=== PATIENT | male | born 1970 | race Caucasian/White ===

== ENCOUNTER 2022-12-13 07:27 | Emergency (ER) | payer BC ==
[~2022-12-13] VITALS: Ht 165.1 cm; Wt 69.9 kg
[2022-12-13 07:32] VITALS: BP 111/73; PULSE 66; RESP 18; TEMP 98.1; O2SAT 97
[2022-12-13] MEDS ORDERED: LIDOCAINE/EPI 2% 1:100000 20 ML VIAL INJ ONE (08:05)
== END 2022-12-13 09:57 | disposition home or self-care (01) ==
LOC: MED 07:27
DX: S01.01XA Laceration without foreign body of scalp, initial encounter (principal); W22.8XXA Striking against or struck by other objects, initial encounter; Y93.89 Activity, other specified; Y92.89 Other specified places as the place of occurrence of the external cause; Y99.8 Other external cause status
CPT/HCPCS: 12002; 70450; 90471; 90715; 99285; J2001